=== PATIENT | female | born 1995 | race Asian ===

== ENCOUNTER 2021-05-11 19:12 | Emergency (ER) | payer BC, OTHER ==
[~2021-05-11] VITALS: Ht 154.9 cm; Wt 43.7 kg
[2021-05-11 23:10] VITALS: BP 110/68
== END 2021-05-11 23:37 | disposition home or self-care (01) ==
LOC: ED 23:09
DX: S16.1XXA Strain of muscle, fascia and tendon at neck level, initial encounter (principal); V49.59XA Passenger injured in collision with other motor vehicles in traffic accident, initial encounter; Y93.89 Activity, other specified; Y92.488 Other paved roadways as the place of occurrence of the external cause; Y99.8 Other external cause status
CPT/HCPCS: 72125; 99284